=== PATIENT | female | born 1980 | race Caucasian/White ===

== ENCOUNTER 2016-06-21 12:45 | Emergency (ER) | payer OTHER ==
[~2016-06-21] VITALS: Ht 160 cm; Wt 86.3 kg
[2016-06-21 13:33] VITALS: BP 125/79
--- NOTE | 2016-06-21 13:48 | EKG ---
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
--- NOTE | 2016-06-21 13:58 | ED.ADGEN ---
Past History Past Medical History: No Pertinent History Adult General Chief Complaint Chief Complaint multiple complaints HPI HPI Patient is a 36 year old female who presents with nausea, vomiting, burning chest pain, cough and sinus congestion. Also reports dysuria. Pt is , after IVF, 13 weeks , sent here due to the chest pain. Pt reports cp started after repeated vomiting, improved today and taking in IV fluids. Pt reports burning with urination, no vaginal bleeding. Cramping of her abdomen that has been "going on the entire ". Pt has not attempted any symptom controlling medication as she doesn't like to take them. No h/o DVT, PE or family history of either. No h/o CAD. No pain or swelling in calves. Review of Systems Review of Systems Constitutional: Denies fever or chills [] Eyes: Denies change in visual acuity, redness, or eye pain [] HENT: reports nasal congestion and sore throat [] Respiratory: per hpi Cardiovascular: No additional information not addressed in HPI [] GI: Denies bloody stools or diarrhea [] : per hpi Musculoskeletal: Denies back pain or joint pain [] Integument: Denies rash or skin lesions [] Neurologic: Denies headache, focal weakness or sensory changes [] Current Medications Current Medications Current Medications Medications (Trade) Dose Ordered Sig/Scott Start Time Stop Time Status Last Admin Dose Admin Acetaminophen (Tylenol) 650 mg 1X ONCE 06/21/16 14:00 06/21/16 14:01 DC 06/21/16 14:14 650 MG Metoclopramide HCl (Reglan) 10 mg 1X ONCE 06/21/16 14:00 06/21/16 14:01 DC 06/21/16 14:14 10 MG Allergies Allergies Allergies Coded Allergies Type Severity Reaction Last Updated Verified No Known Drug Allergies 06/21/16 No Physical Exam Physical Exam Constitutional: Well developed, well nourished, no acute distress, non-toxic appearance. [] HENT: Normocephalic, atraumatic, bilateral external ears normal, oropharynx moist, no oral exudates, nose normal. [] Eyes: PERRLA, EOMI, conjunctiva normal, no discharge. [] Neck: Normal range of motion, no tenderness, supple, no stridor. [] Cardiovascular:Heart rate regular rhythm, no murmur [] Lungs & Thorax: Bilateral breath sounds clear to auscultation [] Abdomen: Bowel sounds normal, soft, no tenderness, no masses, no pulsatile masses. [] Skin: Warm, dry, no erythema, no rash. [] Back: No tenderness, no CVA tenderness. [] Extremities: No tenderness, no cyanosis, no clubbing, ROM intact, no edema. [] Neurologic: Alert and oriented X 3, normal motor function, normal sensory function, no focal deficits noted. [] Psychologic: Affect normal, judgement normal, mood normal. [] Current Patient Data Vital Signs Vital Signs Date Time Temp Pulse Resp B/P Pulse Ox O2 Delivery O2 Flow Rate FiO2 06/21/16 13:33 97.7 92 20 98 Room Air Lab Results Laboratory Tests Test 06/21/16 13:50 06/21/16 14:04 Urine Collection Type Unknown Urine Color Yellow Urine Clarity Clear Urine pH 5.5 Urine Specific [place] <=1.005 Urine Protein Neg (NEG-TRACE) Urine Glucose (UA) Negmg/dL (NEG) Urine Ketones (Stick) Negmg/dL (NEG) Urine Blood Small (NEG) Urine Nitrite Neg (NEG) Urine Bilirubin Neg (NEG) Urine Urobilinogen Dipstick 0.2mg/dL (0.2 mg/dL) Urine Leukocyte Esterase Trace (NEG) Urine RBC 3-5/HPF (0-2) Urine WBC 1-4/HPF (0-4) Urine Squamous Epithelial Cells Few/LPF Urine Bacteria Few/HPF (0-FEW) POC Urine HCG, Qualitative hcg positive (Negative) EKG EKG 84 bpm, sinus, normal axis, normal intervals, no ST elevation or depression, T waves nonischemic[] Radiology/Procedures Radiology/Procedures CXR: Exam: AP portable chest. History: Cough, chest pain, nausea and vomiting. Comparison: None. Findings: The heart and mediastinal structures are within normal limits for size. Lungs are without infiltrate. No pneumothorax or pleural effusion is appreciated. Impression: 1. No acute cardiopulmonary process. Course & Med Decision Making Course & Med Decision Making Pertinent Labs and Imaging studies reviewed. (See chart for details) ua did not show significant dehydration, pt tolerating water here in Ed. Given Tylenol and reglan. CXR negative, HR and o2 sats normal, PE unlikely. Explained to pt and the testing and what is considered, but not likely. Recommend meds for symptom control. + mild UTI. will treat with keflex. Few reglan given, Tylenol for pain. f/u with PCP, return precautions given. Final Impression Final Impression UTI Nausea and vomiting Upper respiratory infection[] Problems: Dragon Disclaimer Dragon Disclaimer This electronic medical record was generated, in whole or in part, using a voice recognition dictation system. BEVERLY AGRAWAL MD Jun 21, 2016 13:58
[2016-06-21] MEDS ORDERED: ACETAMINOPHEN 325 MG TABLET PO ONE (14:00)
[2016-06-21] MEDS ORDERED: METOCLOPRAMIDE 10 MG TABLET PO ONE (14:00)
--- NOTE | 2016-06-21 14:07 | RAD ---
Exam: AP portable chest. History: Cough, chest pain, nausea and vomiting. Comparison: None. Findings: The heart and mediastinal structures are within normal limits for size. Lungs are without infiltrate. No pneumothorax or pleural effusion is appreciated. Impression: 1. No acute cardiopulmonary process.
[2016-06-21 14:29] LABS: BILIRUBIN,URINE NEG (NEG); CLARITY,URINE CLEAR; COLOR,URINE YELLOW; GLUCOSE,URINE NEG (NEG)
[2016-06-21 14:30] LABS: NITRITE,URINE NEG (NEG); UROBILINOGEN,URINE 0.2 mg/dL (0.2 mg/dL)
[2016-06-21 14:36] LABS: BACTERIA,URINE FEW /HPF (0-FEW); SQUAMOUS EPITHELIAL CELL,UR FEW /LPF
[2016-06-21] MEDS ORDERED: CEPH-264 PO (14:53)
[2016-06-21] MEDS ORDERED: METO10TA81 PO (14:53)
== END 2016-06-21 14:58 | disposition home or self-care (01) ==
LOC: ER 12:45
DX: O23.41 Unspecified infection of urinary tract in pregnancy, first trimester (principal); O99.511 Diseases of the respiratory system complicating pregnancy, first trimester; R11.2 Nausea with vomiting, unspecified; R07.89 Other chest pain; Z3A.13 13 weeks gestation of pregnancy
CPT/HCPCS: 71010; 81001; 84703; 87086; 93005; 99285; J8597; 81025